=== PATIENT | male | born 1945 | race Two or more races ===

== ENCOUNTER → 2016-10-16 | Outpatient (CLI) | payer MEDICARE, MEDICAID ==
--- NOTE | 2016-10-16 13:18 | RADRPT ---
PROCEDURE: XR Knee. CLINICAL INDICATION: Pain. TECHNIQUE: Right knee x-rays, 4 views. COMPARISON: None. FINDINGS: Bone density appears decreased. There is no visible fracture. The knee joint is well maintained. Vascular calcifications are seen within the soft tissues. There is no evidence of joint effusion. IMPRESSION: Low bone density without evidence of acute osseous abnormality. Atherosclerosis. RPTAT: [facility] .Oksana Carroll MD, MD Date Time Electronically viewed and signed by .Oksana Carroll MD, on 10/16/2016 13:18 .T/
--- NOTE | 2016-10-16 13:31 | RADRPT ---
PROCEDURE: XR Hip. CLINICAL INDICATION: Pain. TECHNIQUE: Right hip x-rays, 3 views including single frontal view of the pelvis. COMPARISON: None currently available. FINDINGS: There are severe degenerative changes of the right hip with moderate joint space narrowing and theron ening of the femoral head. Marked sclerosis and subchondral cystic change of the deformed femoral h ead is observed. Bony remodelling is also observed within the adjacent acetabulum. The left hip is unremarkable. Vascular calcifications are seen within the soft tissues. 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 Bony remodelling is also observed of the adjacent acetabulum. RPTAT: [facility] .Oksana Carroll MD, MD Date Time Electronically viewed and signed by .Oksana Carroll MD, on 10/16/2016 13:31 .T/
== END | disposition home or self-care (01) ==
LOC: HKI 13:02
PROVIDERS: ATTEND Orthopaedic Surgery
DX: M87.051 Idiopathic aseptic necrosis of right femur (principal); M25.551 Pain in right hip; I10 Essential (primary) hypertension; J44.9 Chronic obstructive pulmonary disease, unspecified; G62.9 Polyneuropathy, unspecified; Z86.73 Personal history of transient ischemic attack (TIA), and cerebral infarction without residual deficits; Z72.0 Tobacco use; Z79.82 Long term (current) use of aspirin
CPT/HCPCS: 73502; 73564; G0463